=== PATIENT | male | born 1960 ===

== ENCOUNTER 2021-11-28 09:04 | Outpatient (CLI) | payer OTHER, SELFPAY ==
--- NOTE | 2021-11-28 11:00 | NEURO_ITS ---
Impression: # Complains of right hand pain and numbness. # Right Carpal Tunnel Syndrome, sensory more than motor. # No ulnar neuropathy. # Ulnar to median cross innervation. # Normal needle/EMG exam. Nerve Conduction Studies Anti Sensory Summary Table Stim Site NR Peak (ms) P-T Amp (?V) Site1 Site2 Delta-P (ms) Dist (cm) Lázaro (m/s) Right Median Anti Sensory (2-3nd Digit) Wrist 5.1 15.0 Wrist 2-3nd Digit 5.1 14.0 27 Wrist 6.3 23.2 Wrist 2-3nd Digit 5.1 14.0 27 Right Radial Anti Sensory (Base 1st Digit) Wrist 2.8 19.6 Wrist Base 1st Digit 2.8 0.0 Right Ulnar Anti Sensory (5th Digit) Wrist 2.5 37.3 Wrist 5th Digit 2.5 14.0 56 Motor Summary Table Stim Site NR Onset (ms) O-P Amp (mV) Site1 Site2 Delta-0 (ms) Dist (cm) Lázaro (m/s) Right Median Motor (Abd Poll Brev) Wrist 3.8 1.5 Elbow Wrist 6.3 29.0 46 Elbow 10.1 1.7 ELB/ADM Wrist 0.4 0.0 Right Ulnar Motor (Abd Dig Minimi) Wrist 2.4 6.1 A Elbow Wrist 6.0 33.0 55 A Elbow 8.4 4.7 F Wave Studies NR F-Lat (ms) L-R F-Lat (ms) Right Median (Mrkrs) (Abd Poll Brev) 28.42 Right Ulnar (Mrkrs) (Abd Dig Min) 29.63 EMG Side Muscle Nerve Root Ins Act Fibs Amp Dur Recrt Comment Right 1stDorInt Ulnar C8-T1 Nml Nml Nml Nml Nml Right Ext Indicis Radial (Post Int) C7-8 Nml Nml Nml Nml Nml Right Ext Digitorum Radial (Post Int) C7-8 Nml Nml Nml Nml Nml Right BrachioRad Radial C5-6 Nml Nml Nml Nml Nml Right PronatorTeres Median C6-7 Nml Nml Nml Nml Nml Right Abd Poll Brev Median C8-T1 Nml Nml Nml Nml Nml MTDD
== END 2021-11-28 09:05 | disposition home or self-care (01) ==
LOC: ANHNEURO 09:06
PROVIDERS: Visit Provider Internal Medicine
DX: R20.2 Paresthesia of skin (principal); G56.01 Carpal tunnel syndrome, right upper limb
CPT/HCPCS: 95886; 95909

== ENCOUNTER 2022-05-04 09:26 | Emergency (ER) | payer OTHER, SELFPAY ==
[2022-05-04 09:32] VITALS: BP 162/99; PULSE 70; RESP 21; TEMP 35.7; O2SAT 98
--- NOTE | 2022-05-04 09:46 | ED.URI ---
HPI - URI/Sore Throat General Chief Complaint: Upper Respiratory Infection Stated Complaint: sore throat, cough, fever Time Seen by Provider: 05/04/22 09:46 Source: patient, RN notes reviewed and old records reviewed Mode of arrival: ambulatory Limitations: no limitations History of Present Illness HPI Narrative: 62-year-old male presents to the [facility] with complaints of sinus congestion, cough. States it started approximately 10 days ago maybe a little more with body aches, congestion, sore throat. Thought he was getting over it when it returned a day or 2 ago. Has not taken anything for symptoms. Patient is diabetic. Patient states he wakes up in the morning his sugars are normally 150 after breakfast 220s, currently 224. By lunch time he reports he will be back into the 120s. Related Data Home Medications Medication Instructions Recorded Confirmed insulin aspart U-100 100 unit/mL 1 unit subcut DIRECTED 05/04/22 05/04/22 (3 mL) subcutaneous pen (Novolog Flexpen U-100 Insulin aspart) insulin glargine 100 unit/mL (3 1 unit subcut DIRECTED 05/04/22 05/04/22 mL) subcutaneous pen (Basaglar KwikPen U-100 Insulin) losartan 100 mg tablet 100 mg PO DAILY 05/04/22 05/04/22 pen needle, diabetic 32 gauge x 05/04/22 05/04/22 5/32 (BD Ultra-Fine Esha Pen Needle) Allergies Allergy/AdvReac Type Severity Reaction Status Date / Time No Known Allergies Allergy Verified 05/04/22 09:40 Review of Systems Review of Systems: All systems reviewed & are unremarkable except as noted in HPI and below Constitutional: Constitutional: Reports as per HPI Eyes: Eyes: Reports no additional eye complaints ENT: Reports as per HPI and Reports nasal congestion Cardiovascular: Cardiovascular: Reports no additional cardiovascular complaints, Denies chest pain and Denies dyspnea Respiratory: Respiratory: Reports as per HPI, Denies chest congestion, Reports cough and Denies dyspnea Gastrointestinal: Gastrointestinal: Reports no additional gastrointestinal complaints, Denies abdominal pain, Denies nausea and Denies vomiting Musculoskeletal: Musculoskeletal: Reports no additional musculoskeletal complaints Integumentary/Breasts: Skin/Breast: Reports system reviewed and no additional complaints, except as docu Neurologic: Reports system reviewed and no additional complaints, except as documented Psychiatric: Psychiatric: Reports no additional psychiatric complaints Allergic/Immunologic: Allergic/Immunologic: Reports no additional allergic/immunologic complaints PMFSH Family History Family History Father Family history of lung cancer Mother Family history of malignant neoplasm of breast in first degree relative Social History Social History Smoking status: Never smoker Alcohol intake: current Comments At the time of my signature, I reviewed and agree with the nursing past medical, surgical, social, and family history. There is no relevant family history pertinent to the patient complaint. Exam Const: General: cooperative, healthy appearing, comfortable, no acute distress, well developed, alert and well nourished Nutritional Appearance: well nourished Orientation/consciousness: patient oriented x3 Limitations: no limitations HENMT: Head: normal to inspection Ears: hearing grossly normal bilaterally and external ears normal Face/Nose/Sinus: Normal external nose present, Normal nares present, Normal nasal mucous membranes and turbinates present and normal facial exam Face and sinus: normal facial exam Mouth: Yes Normal oral and palatal mucosa present, Yes lip normal and Yes moist mucous membranes Throat: posterior oropharynx normal and uvula midline Eyes: General: appearance normal, both eyes and all related structures Alignment and Position: alignment normal Periorbital: periorbital findings nor
== END 2022-05-04 10:09 | disposition home or self-care (01) ==
PROVIDERS: Emergency Provider Nurse Practitioner
DX: J32.9 Chronic sinusitis, unspecified (principal); E10.9 Type 1 diabetes mellitus without complications
CPT/HCPCS: 99213; G0463